=== PATIENT | female | born 1970 | race Two or more races ===

== ENCOUNTER 2018-04-12 14:30 | Outpatient (AMBR) | payer MEDICAID, SELFPAY ==
--- NOTE | 2018-04-09 13:19 | PT.OIERPT ---
PT OP Initial Eval Patient Information Visit Reasons: Knee pain Medical Diagnosis: M25.561, M25.562 Treatment Dx #1: B knee pain Start of Care: 04/09/18 Date of Onset: October 2017 Initial Assessment Subjective Pt is 48 yr old portuguese speaking female who c/o B knee pain since October of this year. She is not sure why they started to swell and hurt but the pain is intense at about 7/10. She works in the [employer] but hasn't worked due to pain. Increased pain with squatting, stairs, prolonged walking. PMH: DM, arthritis Imaging: X-rays in EMR, reviewed Pt goal: to walk without pain. Objective B knee AROM: Extension: -3 deg Flexion: full Strength: Hamstrings: 4/5 Quads: 4-/5 limited by patellofemoral pain Special testing: Patella PROM: limited laterally by pain TTP: moderate of lateral trochlear groove Anterior drawer: negative Varus/valgus: slight varus gapping Mellissa's: positive on L Assessment Pt presentation consistent with X-ray report that reveals tricompartmental arthritis with lateral compartment worse. She has pain with patella compression, worse on the lateral side. The L knee is more painful that the R and is rotation sensitive. These impairments limit squatting and prolonged standing and walking tolerance. Short Term and Coordinator Of Evaluation Goals 1. Ind with HEP 2. Improved quad strength on L to 4+/5 3. Pt will squat to 50% depth x10 with <=4/10 pain 4. Pt will ambulate for 30 minutes with <=4/10 pain Treatment Plan Pt has 5 visits authorized and will be scheduled for 2x a week. 1. Manual therapy 2. Therex 3. Modalities as indicated, moist heat, ice, estim Frequency and Duration 2x a week for 6 weeks. Certification Dates: 04/09/18 to 07/09/18 Office Procedures PT Procedures PT Date of Service: 04/09/18 OP PT Eval Mod Complex 30 minutes: Yes
--- NOTE | 2018-04-09 13:22 | PTNOTE_ITS ---
PT OP Initial Eval Patient Information Visit Reasons: Knee pain Medical Diagnosis: M25.561, M25.562 Treatment Dx #1: B knee pain Start of Care: 04/09/18 Date of Onset: October 2017 Initial Assessment Subjective Pt is 48 yr old italian speaking female who c/o B knee pain since October of this year. She is not sure why they started to swell and hurt but the pain is intense at about 7/10. She works in the [employer] but hasn't worked due to pain. Increased pain with squatting, stairs, prolonged walking. PMH: DM, arthritis Imaging: X-rays in EMR, reviewed Pt goal: to walk without pain. Objective B knee AROM: Extension: -3 deg Flexion: full Strength: Hamstrings: 4/5 Quads: 4-/5 limited by patellofemoral pain Special testing: Patella PROM: limited laterally by pain TTP: moderate of lateral trochlear groove Anterior drawer: negative Varus/valgus: slight varus gapping Mellissa's: positive on L Assessment Pt presentation consistent with X-ray report that reveals tricompartmental arthritis with lateral compartment worse. She has pain with patella compression , worse on the lateral side. The L knee is more painful that the R and is rotation sensitive. These impairments limit squatting and prolonged standing and walking tolerance. Short Term and Resource Technician Goals 1. Ind with HEP 2. Improved quad strength on L to 4+/5 3. Pt will squat to 50% depth x10 with <=4/10 pain 4. Pt will ambulate for 30 minutes with <=4/10 pain Treatment Plan Pt has 5 visits authorized and will be scheduled for 2x a week. 1. Manual therapy 2. Therex 3. Modalities as indicated, moist heat, ice, estim Frequency and Duration 2x a week for 6 weeks. Certification Dates: 04/09/18 to 07/09/18 Office Procedures PT Procedures PT Date of Service: 04/09/18 OP PT Eval Mod Complex 30 minutes: Yes
--- NOTE | 2018-04-12 15:06 | PT.ODAYNRPT ---
PT Outpatient Daily Note Date of Service: April 12, 2018 OP Daily Note Visit Reasons: Knee pain Outpatient Physical Therapy Treatment Date: 04/12/18 Subjective: pt reported some discomfort after the sci-fit bike but was doing upon visit. Objective: see flow sheet. Assessment: after the sci-fit pt did well with ther ex. she denied increase in pain. no difficulty throughout treatment. good quad contraction during exercises as palpated the quads. good mobility with ROM observed. overall pt did well. Plan: continue POC per PT. Length of Time (minutes) of Treatment: 30 Minutes Office Procedures PT Procedures PT Date of Service: 04/09/18 OP PT Eval Mod Complex 30 minutes: Yes PT Procedures PT Date of Service: 04/12/18 Therapeutic Exercise 30 minutes: Yes
== END 2018-04-20 23:59 ==
PROVIDERS: PCP Physician Assistant; Referring Provider Physician Assistant; Visit Provider Nurse Practitioner Family
DX: M25.561 Pain in right knee (principal); M25.562 Pain in left knee
CPT/HCPCS: 97110; 97162

== ENCOUNTER → 2025-07-13 | Outpatient (CLI) | payer MEDICAID, SELFPAY ==
--- NOTE | 2025-07-13 08:15 | XR_ITS ---
Examination: Screening digital mammography, bilateral Computer aided detection 3-D breast Tomosynthesis, bilateral Date and time of exam: July 13, 2025 0828 hours, compared to mammograms dating to November 30, 2016 Indication: Screening Technique: Nonmagnified MLO, CC views of the breasts to been obtained, reconstructed from 3-D Tomosynthesis images. R2 computer aided detection program utilized for evaluation of suspicious masses and/or abnormal calcifications. 3-D Tomosynthesis images obtained. Findings: Scattered areas of fibroglandular density Benign calcifications. 11 mm nodule lobular margins upper outer right breast anterior depth Impression: BI-RADS Category 0: Incomplete: Need additional imaging evaluation Recommend follow-up spot radiographic views of 11 mm nodule upper outer right breast as well as right breast sonography to complete the workup
== END | disposition home or self-care (01) ==
LOC: CDIM 08:21
DX: Z12.31 Encounter for screening mammogram for malignant neoplasm of breast (principal); N63.11 Unspecified lump in the right breast, upper outer quadrant; R92.8 Other abnormal and inconclusive findings on diagnostic imaging of breast
CPT/HCPCS: 77063; 77067